=== PATIENT | male | born 1965 | race Caucasian/White ===

== ENCOUNTER 2024-02-23 17:03 | Observation (INO) | payer MEDICARE, OTHER ==
[2024-02-23 19:07] LABS: #Basophils 0.08 10x3/uL (0.0-0.2); %Basophils 0.8 % (0.0-1.0); %Eosinophils 4.1 % (0.0-10.0); %Lymphocytes 22.9 % (21.0-51.0); %Monocytes 8.6 % (0.0-10.0); %Neutrophils 62.8 % (42.0-75.0); Hematocrit 47.7 % (42.0-52.0); Hemoglobin 16.2 g/dL (14.0-18.0); Mean Corpuscular Hemoglobin 31.5 pg (27.0-31.0); Mean Corpuscular Volume 92.6 fL (78.0-98.0); Mean Platelet Volume 10.1 fL (7.4-10.4); Platelet Count 329 10x3/uL (130-400); RBC Distribution Width 13.2 % (11.5-14.5); Red Blood Cell (RBC) Count 5.15 mill/uL (4.70-6.10)
[2024-02-23 19:28] LABS: ALT (SGPT) 44 U/L (8-55); AST (SGOT) 24 U/L (5-34); Albumin 4.2 g/dL (3.5-5.0); Alkaline Phosphatase 87 U/L (40-110); Anion Gap 13 mmol/L (10-20); BUN (Urea Nitrogen) 13 mg/dL (8.4-25.7); Bilirubin, Total 0.5 mg/dL (0.2-1.2); Calc. Creatinine Clearance 0 mL/min (70-130); Calcium 9.8 mg/dL (7.8-10.44); Carbon Dioxide 26 mmol/L (22-29); Chloride 106 mmol/L (98-107); Estimated GFR 76; Globulin 3.2 g/dL (2.4-3.5); Glucose 73 mg/dL (70-105); Potassium 4.1 mmol/L (3.5-5.1); Protein, Total 7.4 g/dL (6.0-8.3); Sodium 141 mmol/L (136-145)
[2024-02-23 19:33] LABS: Troponin I Less than 0.010 ng/mL (< 0.028)
[2024-02-23] MEDS ORDERED: Aspirin Chewable 81 MG TAB ONE (19:56)
[2024-02-23] MEDS ORDERED: Ondansetron ODT 4 MG TAB PO PRN (21:04)
[2024-02-23] MEDS ORDERED: Acetaminophen 325 MG TAB PO PRN (21:04)
[2024-02-23 21:42] LABS: Hemoglobin A1c 5.9 % (4.0-6.0)
[2024-02-23] MEDS: Calcium Carbonate 500 MG ChewTAB PO PRN (23:24)
[2024-02-23] MEDS: Nicotine 21 MG PATCH TD SCH (23:32)
[2024-02-24 00:04] VITALS: BMI 34.0
[2024-02-24 04:06] LABS: #Basophils 0.08 10x3/uL (0.0-0.2); %Basophils 0.8 % (0.0-1.0); %Eosinophils 4.9 % (0.0-10.0); %Lymphocytes 29.9 % (21.0-51.0); %Monocytes 8.6 % (0.0-10.0); %Neutrophils 55.1 % (42.0-75.0); Hematocrit 45.5 % (42.0-52.0); Hemoglobin 15.6 g/dL (14.0-18.0); Mean Corpuscular HGB CONC 34.3 g/dL (32.0-36.0); Mean Corpuscular Hemoglobin 31.5 pg (27.0-31.0); Mean Corpuscular Volume 91.7 fL (78.0-98.0); Mean Platelet Volume 10.1 fL (7.4-10.4); Platelet Count 301 10x3/uL (130-400); Red Blood Cell (RBC) Count 4.96 mill/uL (4.70-6.10)
[2024-02-24 04:43] LABS: ALT (SGPT) 38 U/L (8-55); AST (SGOT) 25 U/L (5-34); Albumin 3.7 g/dL (3.5-5.0); Alkaline Phosphatase 79 U/L (40-110); Anion Gap 13 mmol/L (10-20); BUN (Urea Nitrogen) 12 mg/dL (8.4-25.7); Bilirubin, Total 0.4 mg/dL (0.2-1.2); Calc. Creatinine Clearance 141 mL/min (70-130); Calcium 9.4 mg/dL (7.8-10.44); Carbon Dioxide 21 mmol/L (22-29); Cardiac Risk 4.8 (Less than 4.5); Chloride 107 mmol/L (98-107); Cholesterol 160 mg/dl (< 200 Desired); Estimated GFR 101; Globulin 2.8 g/dL (2.4-3.5); Glucose 112 mg/dL (70-105); HDL Cholesterol 33 mg/dL (>60 Neg Risk); LDL Cholesterol, Calculated 67 mg/dL; Protein, Total 6.5 g/dL (6.0-8.3); Sodium 137 mmol/L (136-145); Triglycerides 302 mg/dL (Less than 150)
[2024-02-24] MEDS: Rosuvastatin 20 MG TAB PO SCH (09:32)
[2024-02-24] MEDS: DULoxetine 20 MG CAP PO SCH (09:32)
[2024-02-24] MEDS: Aspirin 81 mg Enteric Coated Tablet PO SCH (09:32)
[2024-02-24 14:58] VITALS: TEMP 98.2
[2024-02-24 17:01] VITALS: BP 109/69
[2024-02-24] MEDS ORDERED: Prazosin HCl 1 MG CAP PO SCH (21:00)
[2024-02-24] MEDS ORDERED: Melatonin 3 MG TAB PO SCH (21:00)
[2024-02-25] MEDS ORDERED: Rosuvastatin 20 MG TAB PO SCH (09:00)
== END 2024-02-24 16:12 | disposition home or self-care (01) ==
LOC: ERS 17:03 → 2SE 20:39
PROVIDERS: ADMIT Student in an Organized Health Care Education/Training Program; ATTEND Student in an Organized Health Care Education/Training Program
DX: R07.89 Other chest pain (principal); G45.9 Transient cerebral ischemic attack, unspecified; R20.0 Anesthesia of skin; F17.200 Nicotine dependence, unspecified, uncomplicated; E78.5 Hyperlipidemia, unspecified
CPT/HCPCS: 70450; 70551; 80053; 80061; 83036; 84484; 85025; 93005 ×2; 99285; G0378 ×3; 36415; 84443; 93010